=== PATIENT | female | born 1960 | race Caucasian/White ===

== ENCOUNTER 2016-08-04 09:51 | Emergency (ER) | payer OTHER ==
[~2016-08-04] VITALS: Ht 167.6 cm; Wt 144.0 kg
[~2016-08-04 09:51] MED LIST: ACET-2766 PO; CALC-762 PO; DESI50TA PO; GABA-502 PO; HYDR4TAB PO; LOV100 SUBQ; LOVA40TA PO; MS15TCR PO; POLY17PO6 PO; SENN-133 PO
[2016-08-04 09:55] VITALS: BP 128/75; PULSE 101; RESP 16; O2SAT 93
--- NOTE | 2016-08-04 10:26 | ED.REPORT ---
HPI-General Illness Date of Service August 04, 2016 ED Provider: Major German MD 56 year old female with a history of non-small cell lung cancer with mets to pelvis and blood clots in bilateral lower extremities, anticoagulated on Lovenox , presents to the ER accompanied by her complaining of a week of intermittent right lower extremity pain, localized in the right toes. Pain regularly awakens her from sleep, and is relieved by bearing weight on her right foot, though she reports that her symptoms have made ambulation difficult and she requires a walker for assistance. Patient denies fever, cough, chest pain, and shortness of breath. Her legs are chronically swollen due to the presence of blood clots, but she denies any recent change in swelling. expresses concern for peripheral circulation, states that her toes have lately been blue in color. Yesterday she had a lumbar puncture to rule out Guillain- Ashfield syndrome. She is scheduled for an appointment with her Oncologist, Dr. Farris , six days from now. Nursing Notes Stated Complaint: PURPLE FEET Chief Complaint: Extremity Trauma Nursing Notes Reviewed: Yes Allergies: Coded Allergies: lisinopril (Verified Adverse Reaction, Unknown, cough, 08/03/16) Scheduled Calcium Carbonate/Vitamin D3 (Calcium 1,000 + D3 Caplet) 1 Each Tablet 1 EACH PO DAILY Desipramine (Desipramine) 50 Mg Tablet 50 MG PO HS Enoxaparin (Lovenox) 100 Mg/Ml Syringe 100 MG SUBQ DAILY Gabapentin (Gabapentin) 300 Mg Capsule 300 MG PO BID Lovastatin (Lovastatin) 40 Mg Tablet 80 MG PO HS Morphine Sulfate ER (MS Contin) 15 Mg Tablet.er 15-30 MG PO BID Polyethylene Glycol 3350 (Miralax) 17 Gm Powd.pack 34 GM PO DAILY Sennosides (Senna) 8.6 Mg Tablet 34.4 MG PO HS Scheduled PRN Hydromorphone (Hydromorphone) 4 Mg Tablet 4-8 MG PO Q4H PRN PRN Pain Miscellaneous Medications Acetaminophen (Tylenol Arthritis) 650 Mg Tablet.er 500 MG PO General Time Seen by MD: 10:08 Chief Complaint Other (Right Lower Extremity Pain) Hx Obtained From: Patient, Spouse Arrived By: Walk-in Sudden in Onset?: No Onset Occurred: 1 week ago Symptom Duration: Since onset Location: : Foot right: Leg right Quality: Painful Severity: Current: No pain currently Severity: Maximum: Moderate Associated with: Denies: Chest pain, Cough, Fever, Shortness of breath Pertinent Negative: Pt denies other symptoms Exacerbated by: Standing up Pertinent Negative: Relieved by nothing Context Related History: Reports Cancer Recent Healthcare: Recent doctor visit Similar Sx Previous: No Past Medical History Past Medical History Ramirez's esophagus Bilateral lower extremity blood clots, on Lovenox Reports: Cancer (non-small cell lung cancer with mets to pelvis), GERD, Hypertension Reports: Depression Smoking History Current Some Day Smoker Social History Other Social History: Good social support, Review of Systems Full Review of Systems Constitutional: Denies: Chills, Fever Respiratory: Denies: Non-productive cough, Shortness of breath Cardiovascular: Denies: Chest pain Musculoskeletal: Reports: Extremity pain (Right Leg/Foot), Extremity swelling ( Lower, Bilateral), Denies: Back pain, Joint pain, Lumbar pain, Neck pain, Thoracic pain Complete sys rev & neg: except as marked. Physical Exam Vital Signs Vital Signs Date Time Temp Pulse Resp B/P Pulse Ox O2 Delivery O2 Flow Rate FiO2 08/04/16 13:14 36.8 91 16 126/57 92 Room Air 08/04/16 12:29 36.8 91 126/57 92 Room Air 08/04/16 09:55 36.8 101 16 128/75 93 Room Air Initial VS: Reviewed Head / Eyes: Atraumatic, Normocephalic, PERRL Neck: Supple, Non-tender, Full range of motion Abdomen / GI: Soft, Non-tender, No guarding, No rebound, No distention Skin: Warm, Dry, No cyanosis Neurologic: Alert, Oriented, Nonfocal Psychiatric: Mood/affect normal, Behavior normal, Normal thought content General/Constitutional: Awake, Alert, Well developed, Well nourished Distress / Hydration: Positive: Distress mild Appearance / Presentation: Positive: Uncomfortable Respiratory / Chest: Breath sounds NL, No respiratory distress, No rales, No rhonchi, No wheezing Port in the left upper chest, no surrounding erythema. Cardiovascular: Heart rate NL, Regular rhythm, Heart sounds NL Lower Ext Edema: Positive: Bilateral 2+ Upper Extremities Upper Extremity / MS: Full range of motion, Non-tender, No deformity, Neurologic intact, Vascular intact Diffuse petechiae all extremities. Lower Extremity / Pelvis / MS: Full range of motion, Non-tender, No erythema, No deformity, Neurologic intact, Vascular intact Diffuse petechiae all extremities. Ankle / Foot: Full range of motion, No deformity, Neurologic intact, Vascular intact Right great toe with delayed capillary refill. Right lateral ankle pale with decreased capillary refill. Otherwise neurovascularly intact. Interpretation & Diagnostics CT Abd / Pelvis Interpretation CT CHEST/ABDOMEN/PELVIS IMPRESSION: 1. Interval enlargement of right infrahilar mass, presumed to be the primary, appearing to occlude the bronchus intermedius with secondary lower lobe atelectasis. 2. Infiltrate posterior right middle lobe could represent pneumonia, postradiation changes or carcinomatosis. 3. Marked interval increase in size of remote metastasis including the mediastinal, left axillary, and mesenteric lymph nodes, both adrenal glands, probable liver and left kidney, left hemipelvis, left pelvic bones and soft tissues in the posterior right pelvis. Dictated by: Roger Estevez M.D. on 08/04/2016 at 10:26 Approved by: Roger Estevez M.D. on 08/04/2016 at 11:16 Study type: Abdominal CT IV contrast, Abdom CT oral contrast Interpretation / Wet Read by: Interpret - Radiologist US Soft Tissue/Musculoskeletal US DUPLEX DOPPLER UNILATERAL LEG ARTERIES, RIGHT IMPRESSION: 1. No focal stenosis or obstruction. 2. Monophasic waveforms but normal velocities throughout the lower extremity. On review of the CT exam, the iliofemoral arteries show atheromatous changes and small caliber probably accounting for the appearance of proximal stenosis. There is incidental finding of DVT. Findings discussed with Dr. German in the ED Dictated by: Roger Estevez M.D. on 08/04/2016 at 12:26 Approved by: Roger Estevez M.D. on 08/04/2016 at 13:05 Exam Performed by: [facility] pract Exam Type: Diagnostic Clinical Category: Symptom-based Exam Interpreted by: Radiologist Indication: Swelling, Pain Re-Eval/Medical Decision Med Decision/Clinical Course 56-year-old female history of non-small cell lung cancer on novolimab with know pelvic mets presenting with right great toe paresthesias for 1 week. Intermittent. She had poor capillary refill in her right great toe and some pallor of her right lateral ankle. Discussed with oncology thought likely due to paclitaxel treatment. RLE extremity arterial Doppler was performed with monophasic flow and no identifiable clot. I discussed with the radiologist and there was a CT full-body earlier today that they reviewed and there was no evidence of any arterial clot or obstruction of the right lower extremity arterial system. They reported this effectively rules out arterial clot or concern for obstruction. They did note there was significant worsening of metastases. Patient was informed of the results and shesaid and she and her family decided they wanted to go home immediately. Question of pneumonia vs broad other differential on CT though no sxs consistent with pneumonia. Her patient's request she was discharged home with return precautions as to follow-up with her primary doctor and oncologist. Source of Hx: Old records Time of Eval: 12:49 Re-Evaluation/Progress Note: Discussed lab and imaging results and plan to discharge / need for admission. Patient is amenable to the plan. Return precautions given. All other questions addressed. Consultation #1: Referral / Consult Name: Tano Rubin MD Consulted With: On-call physician (Oncology) Call Returned at: 10:54 Note: Discussed patient case with Dr. Rubin, Oncology, health economist for Dr. Farris. Symptoms are likely due to previous chemotherapy. Increase gabapentin if US is normal. Follow-up with Dr. Farris next week. Consultation #2: Consulted With: On-call physician (Radiology) Call Returned at: 12:26 Note: Called to discuss recent CT results. Normal flow, no arterial clot. Counseled Regarding: Diagnosis, Lab results, Need for follow-up, When/why to return to ED Discharge & Departure Primary Impression: Lung cancer Additional Impression: Paresthesia of lower extremity Disposition: Home Discharge Condition All VS Reviewed: Yes Condition: Stable Patient Instructions: Non-Small Cell Lung Cancer (DC) Additional Instructions: Your CT scan does not show signs of an artery clot causing your symptoms. However, it does show significant worsening of your cancer. I am very sorry about this. Your symptoms may be due to vascular disease or a side-effect from your chemotherapy treatment. Follow-up with your oncologist as soon as possible. Return to the ER if you develop worsening or uncontrollable pain/numbness of your leg or foot, weakness, numbness, tingling, worsening swelling, chest pain, cough, shortness of breath, fever, vomiting, or any other concerning symptoms. If there is anything we can help with, please don't hesitate. Referrals: Juan Farris DO (PCP) [facility] Attestation Portions of this note were transcribed by Rick Mclaughlin. I, Dr. German, personally performed the history, physical exam and medical decision-making; I reviewed and confirmed the accuracy of the information in the transcribed note. Signed by: Zoila Mcfadden, 08/04/2016 at 13:13 copies to: Juan Farris Ben M MD August 04, 2016 10:26 RICK MCLAUGHLIN August 04, 2016 10:36
[2016-08-04] MEDS ORDERED: 0.9% Sodium Chloride 100 ML ONE (11:09)
[2016-08-04 12:29] VITALS: BP 126/57; PULSE 91; O2SAT 92
--- NOTE | 2016-08-04 13:06 | DRSVH ---
PROCEDURE: US DUPLEX DOPPLER UNILATERAL LEG ARTERIES, RIGHT INDICATIONS: RLE 1sttoe pain/tingling, delayed capillary refill TECHNIQUE: Color and pulse Doppler interrogation was performed of the right lower extremity arterial system, wit h image documentation. COMPARISON: None. FINDINGS: Vascular Ultrasound Procedure Report Findings(Artery of Lower Extremity)(Right) Common Femoral Artery(Distal) Velocity: 115.10 cm/s Profunda Femoris Artery(Proximal) Velocity: 57.10 cm/s Superficial Femoral Artery(Proximal) Velocity: 81.80 cm/s Superficial Femoral Artery(Mid-longitudinal) Velocity: 79.30 cm/s Superficial Femoral Artery(Distal) Velocity: 99 cm/s Popliteal Artery(Mid-longitudinal) Velocity: 46-41 CM/second Posterior Tibial Artery(Distal) Velocity: 43.70 cm/s Dorsalis Pedis Artery(Distal) Velocity: 21.30 cm/s Greyscale findings: Minimal plaque IMPRESSION: 1. No focal stenosis or obstruction. 2. Monophasic waveforms but normal velocities throughout the lower extremity. On review of the CT exa m, the iliofemoral arteries show atheromatous changes and small caliber probably accounting for the a ppearance of proximal stenosis. There is incidental finding of DVT. Findings discussed with Dr. German in the ED Dictated by: Roger Estevez M.D. on 08/04/2016 at 12:26 Approved by: Roger Estevez M.D. on 08/04/2016 at 13:05
[2016-08-04 13:14] VITALS: BP 126/57; PULSE 91; RESP 16; O2SAT 92
[2016-08-11] MEDS ORDERED: POTA99TA21 PO (11:11)
[2016-08-11] MEDS ORDERED: FURO-129 PO (11:11)
== END 2016-08-04 13:16 | disposition home or self-care (01) ==
LOC: SED 09:51
DX: C34.90 Malignant neoplasm of unspecified part of unspecified bronchus or lung (principal); R20.2 Paresthesia of skin; C79.89 Secondary malignant neoplasm of other specified sites; I82.403 Acute embolism and thrombosis of unspecified deep veins of lower extremity, bilateral; K21.9 Gastro-esophageal reflux disease without esophagitis; I10 Essential (primary) hypertension; F32.9 Major depressive disorder, single episode, unspecified; F17.200 Nicotine dependence, unspecified, uncomplicated; Z79.01 Long term (current) use of anticoagulants; Z88.8 Allergy status to other drugs, medicaments and biological substances